=== PATIENT | female | born 1955 | race Caucasian/White ===

== ENCOUNTER 2016-08-10 14:54 | Outpatient (CLI) | payer MEDICAID, OTHER ==
[2014-11-04 10:41] VITALS: O2SAT 97
== END 2016-08-10 14:55 | disposition home or self-care (01) | DRG 554 ==
LOC: CONVCARE 14:54
PROVIDERS: ATTEND Orthopaedic Surgery
DX: M11.262 Other chondrocalcinosis, left knee (principal)
CPT/HCPCS: 73564